=== PATIENT | female | born 1990 | race Caucasian/White ===

== ENCOUNTER 2020-02-06 09:48 | Outpatient (CLI) | payer OTHER, SELFPAY ==
--- NOTE | ~2020-02-06 | XR_ITS ---
LUMBAR SPINE INDICATION: Low back pain TECHNIQUE: 7 views lumbar spine including flexion/extension views COMPARISON: None FINDINGS: No fracture, subluxation or dislocation. No evidence for spondylolysis or spondylolisthesi s. Vertebral bodies and disk spaces are preserved. No significant alteration of alignment with flexi on/extension. There is an IUD in the pelvis. IMPRESSION: 1: No significant abnormality of the lumbar spine identified. Reviewed, dictated and finalized at location B.
--- NOTE | ~2020-02-06 | XR_ITS ---
XR hip BI 2V w AP pelvis 02/06/2020 10:26 INDICATION: Hip pain and low back pain PROCEDURE: AP pelvis and 2 views of each hip COMPARISON: No prior studies for comparison. FINDINGS: Fracture, dislocation or subluxation is not identified. There is an IUD in the pelvis. Sacr al foramen are symmetric. The soft tissues appear within normal limits. No foreign bodies are identi fied. IMPRESSION: 1: NO ACUTE BONE OR JOINT ABNORMALITY IDENTIFIED. Reviewed, dictated and finalized at location B.
== END 2020-02-06 09:49 | disposition home or self-care (01) ==
PROVIDERS: PCP Internal Medicine; Visit Provider Physician Assistant
DX: M25.551 Pain in right hip (principal); M54.5 Low back pain
CPT/HCPCS: 72114; 73521

== ENCOUNTER 2020-05-09 11:11 | Outpatient (CLI) | payer OTHER, SELFPAY ==
--- NOTE | ~2020-05-09 | US_ITS ---
EXAMINATION: US transvaginal EXAM DATE: 05/09/2020 11:31 INDICATION: Right lower quadrant pain. TECHNIQUE: Pelvic transvaginal sonogram was performed. There are multiple grayscale and Doppler imag es available for interpretation. Comparison is made to prior examination from 03/13/2018. FINDINGS: Uterus measures 7.5 x 3.5 x 4.8 cm, with IUD centrally located inside the endometrial cavi ty. Endometrial stripe measures 5 mm, within normal limits. There is no free pelvic fluid. Right adnexa: The ovary measures 2.7 x 2.2 x 1.8 cm and is morphologically normal. Ovarian vascular f low confirmed. Left adnexa: The ovary measures 1.9 x 0.7 x 3.5 cm and is morphologically normal. Ovarian vascular fl ow confirmed. IMPRESSION: 1. Unremarkable pelvic ultrasound exam. Reviewed, dictated and finalized at location A. [employer]
== END 2020-05-09 11:12 ==
PROVIDERS: Visit Provider Obstetrics & Gynecology
DX: R10.31 Right lower quadrant pain (principal)
CPT/HCPCS: 76830

== ENCOUNTER 2023-08-20 10:51 | Emergency (ER) | payer OTHER, SELFPAY ==
--- NOTE | ~2023-08-20 | CT_ITS ---
EXAMINATION: CT abdomen pelvis w con DATE: 08/20/2023 12:39 INDICATION: Mid to upper abdominal pain for one week. Diarrhea. TECHNIQUE: Computed tomography (CT) of the abdomen and pelvis was performed with 100 CC Omnipaque 350 intravenous contrast. Automated exposure control and iterative reconstruction technique were employe d. Exam dose: 856.89 mGy-cm total exam DLP. COMPARISON: None. FINDINGS: Minimal bilateral dependent lower lobe atelectasis. Normal heart size. No pericardial or pleural effusion. Small sliding hiatal hernia. The liver, gallbladder, bile ducts, pancreas and pancreatic duct appear normal. The spleen measures 13.3 cm vertical dimension, within upper limits of normal. Normal morphology of the adrenal glands. Probable very small posterolateral upper pole left renal cyst, too small to definitively characterize . No suspicious renal mass lesion or urinary tract calculus or hydroureteronephrosis. The urinary bladd er is unremarkable. There is an IUD within the uterus. The adnexal areas are unremarkable. Normal caliber of the abdominal aorta. There are some shoddy mesenteric lymph nodes and to a greater extent right lower quadrant lymph nodes including one larger right lower quadrant nodes measuring up to 8.9 x 13.6 mm. There are some fluid levels in the small bowel but no small bowel dilatation. There is some thickening and enhancement of the wall of the terminal ileum. There are some fluid leve ls in the ascending colon. Otherwise no intraperitoneal or retroperitoneal or pelvic mass lesion or adenopathy or ascites. Small fat-containing umbilical hernia. No suspicious osteolytic or osteoblastic lesions. IMPRESSION: Enterocolitis is suggested, nonspecific. This might be infectious or inflammatory. There is likely associated mild right lower quadrant lymphadenopathy Reviewed, dictated and finalized at Location A. Reviewed, dictated and finalized at location A. IMPRESSION: Enterocolitis is suggested, nonspecific. This might be infectious or inflammatory. There is likely associated mild right lower quadrant lymphaden opathy
[2023-08-20 10:56] VITALS: BP 147/88; PULSE 97; RESP 18; TEMP 36.4; O2SAT 100
[2023-08-20 11:37] LABS: Basophils Percent Auto 0.3 % (0.2-1.2); Eosinophils Absolute Auto 0.1 K/mm3 (0-0.3); Eosinophils Percent Auto 0.8 % (0-4.4); Hematocrit 38.7 % (37.0-47.0); Hemoglobin 12.9 g/dL (12.0-15.0); Immature Granulocyte Absolute 0.02 K/mm3 (0.00-0.031); Immature Granulocyte Percent A 0.3 % (0-0.5); Lymphocytes Absolute Auto 1.06 K/mm3 (0.9-3.2); Lymphocytes Percent Auto 17.8 % (18.3-44.2); Mean Corpuscular HGB Conc 33.3 g/dl (32-36); Mean Corpuscular Hemoglobin 27.9 pg (26-34); Mean Corpuscular Volume 83.8 fl (80-100); Mean Platelet Volume 10.5 fl (7.4-10.4); Monocytes Absolute Auto 0.4 K/mm3 (0.1-0.6); Monocytes Percent Auto 6.7 % (2.6-8.5); Neutrophils Absolute Auto 4.4 K/mm3 (1.3-6.7); Neutrophils Percent Auto 74.1 % (45.5-73.1); Platelet Count Result 256 k/mm3 (150-375); Red Blood Count 4.62 M/mm3 (4.2-5.4); Red Cell Distribution Width 12.9 % (11.5-14.5)
[2023-08-20 11:47] LABS: Appearance Urine Clear (Clear); Bilirubin Urine Negative (Negative); Blood Urine Negative (Negative); Color Urine Yellow (Yellow); Glucose Urine UA Negative (Negative); Ketones Urine Negative (Negative); Leukocyte Esterase Ur Negative LEU/UL (Negative); Nitrate Urine Negative (Negative); Protein Urine Negative (Negative); Specific Grav Ur 1.004 (1.001-1.035); Urobilinogen Urine 0.2 mg/dL (<2.0); pH Urine 6.5 (5.0-9.0)
[2023-08-20 11:48] LABS: Add Urine Microscopic? NO
[2023-08-20 11:51] LABS: Alanine Aminotransferase 33 U/L (6-35); Albumin Level 4.6 g/dL (3.5-5.1); Alkaline Phosphatase 87 U/L (38-126); Anion Gap 9 mmol/L (4-12); Aspartate Amino Transferase 28 U/L (14-36); Bilirubin,Total 0.7 mg/dL (0.2-1.3); Blood Urea Nitrogen 12 mg/dL (7-17); Calcium 9.7 mg/dL (8.4-10.2); Carbon Dioxide 24 mmol/L (22-30); Chloride 105 mmol/L (98-107); Estimated CRCL calculation 111 ml/min; Estimated Glomerular Filt Rate > 60; Glucose 102 mg/dL (65-110); Lipase 34 U/L (23-300); Potassium 3.7 mmol/L (3.4-5.0); Sodium 138 mmol/L (137-145)
--- NOTE | 2023-08-20 12:38 | ED.ABDPAIN ---
HPI - Abdominal Pain General Chief Complaint: Abdominal Pain Stated Complaint: abdominal pain Time Seen by Provider: 08/20/23 11:13 Source: patient Mode of arrival: ambulatory Limitations: no limitations History of Present Illness HPI narrative: This is a 32 year old female that presents to the ER for abdominal pain. Ongoing over the last week. Reports diffuse, achy abdominal pain. She was initially evaluated by her PCP. She has been taking laxatives with little relief. Denies fever, vomiting, or dysuria. Related Data Home Medications Medication Instructions Recorded Confirmed levonorgestrel 21 mcg/24 hours (8 1 device intrauterine ONCE 10/08/19 05/04/22 yrs) 52 mg intrauterine device cholecalciferol (vitamin D3) 125 125 mcg PO DAILY 01/07/22 05/04/22 mcg (5,000 unit) capsule Allergies Allergy/AdvReac Type Severity Reaction Status Date / Time No Known Allergies Allergy Verified 08/20/23 10:51 Review of Systems Review of Systems: CONSTITUTIONAL: Denies fever GASTROINTESTINAL: Reports abdominal pain. Denies nausea, vomiting GENITOURINARY: Denies dysuria All systems reviewed & are unremarkable except as noted in HPI and below PMFSH Past Medical History Medical History (Updated 08/20/23 @ 13:10 by Marivel Giron PA-C) Gastro-esophageal reflux disease without esophagitis Family History Family History Mother Patient's mother is in good health Sibling Patient's brother is in good health Social History Social History Smoking status: Never smoker Second hand tobacco smoke exposure: No Alcohol intake: former Substance use: never Lack of Transportation: No Lack of Food: Never True Current Housing: I Have Housing Concerned About Future Housing: No Difficulty Paying Gas/Electric Bills: No Difficulty Paying for Meds: No Currently Unemployed: No Education: Bachelor's Degree Difficulty w/ Childcare or Family Care: No Exam Narrative: GENERAL: Well-appearing, well-nourished, and in no acute distress. HEAD: Normocephalic, atraumatic. EYES: EOMI. CHEST: Clear to auscultation. No respiratory distress. No wheezes rales or rhonchi HEART: Regular rate and rhythm. No murmur heard. Normal peripheral pulses. ABDOMEN: Soft, nondistended, normal active bowel sounds. Mild tenderness to palpation throughout the abdomen, without guarding EXTREMITIES: Normal range of motion. No edema. SKIN: Warm, dry, no rash. NEURO: No focal deficits. Alert and oriented x3. PSYCH: Normal mood and affect Course Course Emergency Course: Patient updated on workup and agrees with plan of care Vital Signs Vital signs: Vital Signs Temperature 97.6 F 08/20/23 10:56 Pulse Rate 97 08/20/23 10:56 Respiratory Rate 18 08/20/23 10:56 Blood Pressure 147/88 H 08/20/23 10:56 Pulse Oximetry 100 08/20/23 10:56 Oxygen Delivery Room Air 08/20/23 10:56 Temperature 97.6 F 08/20/23 10:56 Pulse Rate 92 08/20/23 12:53 Respiratory Rate 20 08/20/23 12:53 Blood Pressure 134/81 08/20/23 12:53 Pulse Oximetry 100 08/20/23 12:53 Oxygen Delivery Room Air 08/20/23 10:56 MDM - Abdominal Pain MDM Narrative Medical decision making narrative: Patient presents to the ER for abdominal pain ongoing over the last week. She is afebrile and nontoxic appearing. Her vitals are stable. CBC without leukocytosis. Metabolic panel without concerning findings. Urine without evidence of infection. CT abdomen/pelvis shows enterocolitis. Patient will be started on oral antibiotics and is to follow up with her PCP. She is in agreement with plan. She was given warnings to return to the ER Differential Diagnosis Differential diagnosis: Likely constipation and diverticulitis Lab Data Attestation: I reviewed the patient's lab results. 08/20/23 11:26 08/20/23 11:26 Lizeth
[2023-08-20 12:53] VITALS: BP 134/81; PULSE 92; RESP 20; O2SAT 100
== END 2023-08-20 13:24 | disposition home or self-care (01) ==
PROVIDERS: Emergency Provider Physician Assistant; PCP Internal Medicine
DX: K52.9 Noninfective gastroenteritis and colitis, unspecified (principal)
CPT/HCPCS: 36415; 74177; 80053; 81003; 81025; 83690; 85025; 99284; Q9967

== ENCOUNTER 2024-03-31 10:24 | Emergency (ER) | payer OTHER, SELFPAY ==
--- NOTE | 2024-03-31 10:26 | ED_ITS ---
HPI - URI/Sore Throat General Chief Complaint: Upper Respiratory Infection Stated Complaint: Sore Throat Time Seen by Provider: 03/31/24 10:25 Source: patient Mode of arrival: ambulatory Limitations: no limitations History of Present Illness HPI Narrative: Patient is a 33-year-old female who presents with sore throat that started 2 days ago. Patient reports multiple episodes of strep throat recently. Patient was diagnosed with strep throat and treated with amoxicillin 01/22, 03/05, 03/17. Denies any fever, chills, nausea, vomiting, diarrhea. Related Data Home Medications Medication Instructions Recorded Confirmed levonorgestrel 21 mcg/24 hr (up to 1 device intrauterine ONCE 10/08/19 03/31/24 8 years) 52 mg intrauterine device cholecalciferol (vitamin D3) 125 125 mcg PO DAILY 01/07/22 03/31/24 mcg (5,000 unit) capsule Allergies Allergy/AdvReac Type Severity Reaction Status Date / Time No Known Allergies Allergy Verified 03/31/24 10:27 Review of Systems Review of Systems: All systems reviewed & are unremarkable except as noted in HPI and below Constitutional: Constitutional: Denies body ache(s), Denies fever(s), Denies headache(s), Denies malaise and Denies weakness Eyes: Eyes: Denies loss of vision ENT: Denies otalgia, Denies headache(s), Reports nasal congestion, Denies sinus pain and Reports sore throat Cardiovascular: Cardiovascular: Denies chest pain, Denies irregular heart rhythm and Denies dyspnea Respiratory: Respiratory: Denies cough and Denies dyspnea Gastrointestinal: Gastrointestinal: Denies abdominal pain, Denies melena, Denies hematochezia, Denies diarrhea, Denies nausea and Denies vomiting Musculoskeletal: Musculoskeletal: Denies back pain, Denies myalgias and Denies arthralgias Integumentary/Breasts: Skin/Breast: Denies pruritus and Denies rash Neurologic: Denies headache(s), Denies loss of vision and Denies weakness Psychiatric: Psychiatric: Reports no additional psychiatric complaints PMFSH Past Medical History Medical History Gastro-esophageal reflux disease without esophagitis Family History Family History Mother Patient's mother is in good health Sibling Patient's brother is in good health Social History Social History Smoking status: Never smoker Second hand tobacco smoke exposure: No Alcohol intake: former Substance use: never Lack of Transportation: No Lack of Food: Never True Current Housing: I Have Housing Concerned About Future Housing: No Difficulty Paying Gas/Electric Bills: No Difficulty Paying for Meds: No Currently Unemployed: No Education: Bachelor's Degree Difficulty w/ Childcare or Family Care: No Comments At time of signature, agree with nursing past medical, surgical, social and family history. There is no relevant family history pertinent to the presenting complaint. Exam Const: General: cooperative, healthy appearing, comfortable, no acute distress and well nourished Nutritional Appearance: well nourished Orientation/consciousness: patient oriented x3 Limitations: no limitations HENMT: Head: normal to inspection, normocephalic and atraumatic Ears: hearing grossly normal bilaterally, external ears normal, TM's normal bilaterally and EAC's normal Face/Nose/Sinus: Normal external nose present, Normal nares present, Normal nasal mucous membranes and turbinates present, Normal septum present, normal facial exam, sinuses nontender and face symmetric Face and sinus: normal facial exam, sinuses nontender and face symmetric Mouth: Yes Normal oral and palatal mucosa present, Yes lip normal and Yes moist mucous membranes Teeth and gingiva: dentition normal Throat: uvula midline, posterior oropharynx abnormal edema and erythema, postnasal drainage and tonsils absent Eyes: General: appearance normal, both eyes and all related structures Alignment and Position: alignment normal and position normal Periorbital: periorbital findings normal Eyelids: eyelids normal Pupils: Equal, round and reactive pupils present Neck: Neck: normal visual inspection, full ROM, no lymphadenopathy and supple Chest: Chest palpation & inspection: normal inspection of the chest and normal palpation of entire chest wall Resp: Effort & Inspection: normal respiratory effort and able to speak in complete sentences Auscultation: clear to auscultation bilaterally, no crackles, no rales, no rhonchi and no wheezes Cardio: Rate: regular rate Rhythm: regular rhythm Heart sounds: S1 normal heart sound present and S2 normal heart sound present GI: Inspection: normal to inspection Skin: General skin exam: normal color and no rashes or lesions noted Neuro: General: patient oriented x3 and moves all extremities Cranial nerves: Yes Equal, round and reactive pupils present Speech: normal speech Gait exam (Neuro): Normal gait present Extrem: General: normal to inspection, full ROM and no edema Psych: Appearance: grossly normal and well kempt Mental Status: mental status grossly normal Speech and movement: Normal speech and movement present Affect: normal affect Attitude: cooperative Thought process: Normal thought process present Course Course Emergency Course: Patient is aware of diagnosis, understands and agrees to treatment plan. Anticipatory guidance given. Patient agrees to follow-up as directed and is aware of reasons to seek care at the emergency department. Portions of this record may have been created with voice recognition software Level of Care: Express Care Visit Vital Signs Vital signs: Vital Signs Temperature 36.7 C 03/31/24 10:33 Pulse Rate 102 H 03/31/24 10:33 Respiratory Rate 20 03/31/24 10:33 Blood Pressure 137/90 03/31/24 10:33 Pulse Oximetry 98 03/31/24 10:33 Oxygen Delivery Room Air 03/31/24 10:33 Temperature 36.7 C 03/31/24 10:35 Pulse Rate 102 H 03/31/24 10:35 Respiratory Rate 20 03/31/24 10:35 Blood Pressure 137/90 03/31/24 10:35 Pulse Oximetry 98 03/31/24 10:35 Oxygen Delivery Room Air 03/31/24 10:35 Reviewed MDM - URI/Sore Throat MDM Narrative Medical decision making narrative: Patient positive for strep, will treat with antibiotics. Differential diagnosis considered: Almanza virus, strep pharyngitis, allergic rhinitis, upper respiratory tract infection, sinusitis, rhinosinusitis, nasopharyngitis. viral pharyngitis, otitis media, otitis externa, pneumonia, bronchitis, viral cough syndrome, viral syndrome, and influenza. Exam findings show no acute concerns or changes; patient is non-toxic appearing and is in no distress. Patient is appropriate for outpatient treatment and follow-up Medical Records Attestation: I reviewed the patient's medical records. Lab Data Attestation: I reviewed the patient's lab results. Labs: Lab Results 03/31/24 Range/Units 10:43 POC Grp A Strep Screen Positive (Negative) Discharge Plan Discharge Clinical Impression: Strep throat Patient Disposition: Home, Self-Care Condition: Stable Instructions: Strep Throat (ED) Additional Instructions: Your rapid strep swab was positive today at [facility]. After 24 hours on antibiotics throw tooth brush away and start using a new one. Wash your sheets and cup/water bottle that is used daily. Do not share drinks. Take Motrin alternating with Tylenol for pain and fever alternating every 4 hours. Increase fluids, avoid caffeine. Other symptomatic treatments include: -Antihistamine medication such as Benadryl at night and Zyrtec/Claritin/Eliza during the day can help improve symptoms. -Use Flonase twice a day for 5 days then daily to help reduce the inflammation and dry up your sinuses. -You can also use Sudafed or Mucinex. Be sure to drink plenty of water with these medications at least 8 ounces with every dose and it is important to drink 8 to 10 glasses of water per day. Water is a natural decongestant -Eat and drink things that are easy to swallow, like tea or soup, or popsicles. -Oral rinses such as: Salt water gargles and/or may use topical anesthetic (eg. Chloraseptic spray) or lozenges to relieve dryness or throat pain). -Frequent hand washing or hand behavioral health technician is one of the best ways to prevent spread of infection. -Using a vaporizer or humidifier at night will also help thin secretions and help with coughing up phlegm. -Follow up with primary care provider in 3-5 days if condition is not improving - For new or worsening symptoms go directly to the nearest ER Prescriptions: New cefdinir 300 mg capsule 300 mg PO Q12H 10 Days Qty: 20 0RF No Action levonorgestrel 20 mcg/24 hours (5 yrs) 52 mg intrauterine device 1 device I-UTERINE ONCE Rx Instructions: as a single dose pantoprazole [Protonix] 40 mg tablet,delayed release (DR/EC) 40 mg PO QAM Qty: 90 1RF cholecalciferol (vitamin D3) 125 mcg (5,000 unit) capsule 125 mcg PO DAILY fluticasone propionate 50 mcg/actuation spray,suspension 2 spray intranasal DAILY PRN (Reason: allergy symptoms) Qty: 15.8 3RF Rx Instructions: administer into each nostril alprazolam 0.5 mg tablet 0.5 mg PO .COMPLEX PRN (Reason: MRI) Qty: 2 0RF Rx Instructions: one tablet 30 minutes before MRI, may repeat X 1 time if needed tramadol 50 mg tablet 50 mg PO BID PRN (Reason: pain) Qty: 30 0RF Rx Instructions: Not eligible for refill cyclobenzaprine 10 mg tablet 10 mg PO .QHS PRN (Reason: muscle spasm) Qty: 30 0RF buspirone 7.5 mg tablet 7.5 mg PO BID Qty: 60 2RF Follow-up/Referrals: Geeta,Jeffery Meredith, [Primary Care Provider] - 3 Days Stand Alone Forms: Work/School Release IP Time of Disposition: 10:55
[2024-03-31 10:33] VITALS: BP 137/90; PULSE 102; RESP 20; TEMP 36.7; O2SAT 98
[2024-03-31 10:35] VITALS: BP 137/90; PULSE 102; RESP 20; TEMP 36.7; O2SAT 98
[2024-03-31 10:58] LABS: EDSTREPNEGPOS1 Positive (Negative)
== END 2024-03-31 11:00 | disposition home or self-care (01) ==
PROVIDERS: Emergency Provider Nurse Practitioner Family; PCP Internal Medicine
DX: J02.0 Streptococcal pharyngitis (principal); K21.9 Gastro-esophageal reflux disease without esophagitis
CPT/HCPCS: 87880; 99213; G0463

== ENCOUNTER 2024-04-27 11:50 | Emergency (ER) | payer OTHER, SELFPAY ==
[2024-04-27 12:00] VITALS: BP 139/97; PULSE 100; RESP 18; TEMP 36.9; O2SAT 100
[2024-04-27 12:32] LABS: EDSTREPNEGPOS1 Negative (Negative)
--- NOTE | 2024-04-27 12:35 | ED.URI ---
HPI - URI/Sore Throat General Chief Complaint: Upper Respiratory Infection Stated Complaint: Throat/Cough Irritation Time Seen by Provider: 04/27/24 12:37 History of Present Illness HPI Narrative: Patient presents with 2 week history of postnasal drainage, sinus congestion, sore throat, cough. She reports that she believes cough is due to the postnasal drainage. She has been taking [id number] medications with minimal relief. She says over the past several days her throat has begun to hurt much worse. She denies any fever, but does report she is more tired than normal. She voices no other concerns or complaints at this time Related Data Home Medications Medication Instructions Recorded Confirmed cholecalciferol (vitamin D3) 125 125 mcg PO DAILY 01/07/22 04/27/24 mcg (5,000 unit) capsule amitriptyline 10 mg tablet 10 mg PO DAILY 04/27/24 04/27/24 omeprazole 40 mg capsule,delayed 40 mg PO DAILY 04/27/24 04/27/24 release Allergies Allergy/AdvReac Type Severity Reaction Status Date / Time No Known Allergies Allergy Verified 04/27/24 12:02 Review of Systems Review of Systems: All systems reviewed & are unremarkable except as noted in HPI and below Constitutional: Constitutional: Reports no additional constitutional complaints ENT: Reports system reviewed and no additional complaints, except as documented, Reports as per HPI, Reports nasal congestion, Reports sinus pain, Reports sinus pressure and Reports sore throat Cardiovascular: Cardiovascular: Reports no additional cardiovascular complaints Respiratory: Respiratory: Reports no additional respiratory complaints, Reports chest congestion and Reports cough Gastrointestinal: Gastrointestinal: Reports no additional gastrointestinal complaints [facility] Past Medical History Medical History Gastro-esophageal reflux disease without esophagitis Family History Family History Mother Patient's mother is in good health Sibling Patient's brother is in good health Social History Social History Smoking status: Never smoker Second hand tobacco smoke exposure: No Alcohol intake: former Substance use: never Lack of Transportation: No Lack of Food: Never True Current Housing: I Have Housing Concerned About Future Housing: No Difficulty Paying Gas/Electric Bills: No Difficulty Paying for Meds: No Currently Unemployed: No Education: Bachelor's Degree Difficulty w/ Childcare or Family Care: No Exam Const: General: cooperative, no acute distress, alert and awake Orientation/consciousness: oriented to person, oriented to place and oriented to time HENMT: Head: normal to inspection Ears: TM abnormal dull bilateral Mouth: Yes moist mucous membranes Throat: posterior oropharynx abnormal erythema and postnasal drainage Resp: Effort & Inspection: normal respiratory effort and able to speak in complete sentences Auscultation: clear to auscultation bilaterally, no crackles, no rales, no rhonchi and no wheezes Cardio: Palpation: normal PMI Rate: regular rate Rhythm: regular rhythm Heart sounds: S1 normal heart sound present and S2 normal heart sound present Neuro: General: oriented to person, oriented to place and oriented to time Cranial nerves: Yes CN's II-XII intact bilaterally Psych: Appearance: grossly normal Thought process: Normal thought process present Insight: Good insight present (Psych) Judgement: Good judgement present (Psych) Course Course Level of Care: Express Care Visit Vital Signs Vital signs: Vital Signs Temperature 98.4 F 04/27/24 12:00 Pulse Rate 100 04/27/24 12:00 Respiratory Rate 18 04/27/24 12:00 Blood Pressure 139/97 H 04/27/24 12:00 Pulse Oximetry 100 04/27/24 12:00 Oxygen Delivery Room Air 04/27/24 12:00 Temperature 98.4 F 04/27/24 12:00 Pulse Rate 100 04/27/24 12:00 Respiratory Rate 18 04/27/24 12:00 Blood Pressure 139/97 H 04/27/24 12:00 Pulse Oximetry 100 04/27/24 12:00 Oxygen Delivery Room Air 04/27/24 12:00 MDM - URI/Sore Throat MDM Narrative Medical decision making narrative: Negative strep, culture pending. Two weeks of symptoms, consistent with sinusitis. Treat is same. Patient is nontoxic appearing, stable for discharge home on p.o. antibiotic therapy. Discharge instructions reviewed with patient, as well as provided in writing per nursing staff. The instructions also include specific and strict return/GO TO THE ER as well as f/u information. All questions have been answered, and the patient deny any further questions with discharge and discharge plan. Some parts of this dictation were generated by voice recognition software and may contain typographical and/or grammatical inaccuracies. Differential Diagnosis Differential diagnosis: Likely upper respiratory infection, bronchitis and pharyngitis Medical Records Attestation: I reviewed the patient's medical records. Lab Data Attestation: I reviewed the patient's lab results. Labs: Lab Results 04/27/24 Range/Units 12:10 POC Grp A Strep Screen Negative (Negative) Discharge Plan Discharge Clinical Impression: Sinusitis Qualifiers: Sinusitis location: maxillary Chronicity: acute Recurrence: not specified as recurrent Qualified Code(s): J01.00 - Acute maxillary sinusitis, unspecified Patient Disposition: Home, Self-Care Condition: Stable Instructions: Antibiotic Form, Sinusitis (ED) Additional Instructions: Take medications as prescribed. Follow with primary care provider. Emergency department for any new or worsening symptoms Patient Language: Guatemalan Prescriptions: New amoxicillin-pot clavulanate 875-125 mg tablet 1 tablet PO Q12H Qty: 20 0RF No Action omeprazole 40 mg capsule,delayed release(DR/EC) 40 mg PO DAILY amitriptyline 10 mg tablet 10 mg PO DAILY cholecalciferol (vitamin D3) 125 mcg (5,000 unit) capsule 125 mcg PO DAILY fluticasone propionate 50 mcg/actuation spray,suspension 2 spray intranasal DAILY PRN (Reason: allergy symptoms) Qty: 15.8 3RF Rx Instructions: administer into each nostril cyclobenzaprine 10 mg tablet 10 mg PO .QHS PRN (Reason: muscle spasm) Qty: 30 0RF Follow-up/Referrals: Juan F Lee DO [Primary Care Provider] - 1 Week Time of Disposition: 12:44
== END 2024-04-27 12:50 | disposition home or self-care (01) ==
PROVIDERS: Emergency Provider Nurse Practitioner Family; PCP Internal Medicine
DX: J01.00 Acute maxillary sinusitis, unspecified (principal); K21.9 Gastro-esophageal reflux disease without esophagitis
CPT/HCPCS: 87081; 87880; 99213; G0463

== ENCOUNTER 2024-05-02 12:16 | Emergency (ER) | payer OTHER, SELFPAY ==
--- NOTE | ~2024-05-02 | XR_ITS ---
XR chest 2V 05/02/2024 12:53 Indication: Productive cough Procedure: 2 view chest Comparison: No prior studies for comparison. Findings: There is left lower lobe pneumonia. No pleural effusion. Heart size normal. No edema or pne umothorax. Impression: 1: Left lower lobe pneumonia. Reviewed, dictated and finalized at location B. [employer] Impression: 1: Left lower lobe pneumonia.
[2024-05-02 12:21] VITALS: BP 127/81; PULSE 105; RESP 18; TEMP 37.4; O2SAT 99
--- NOTE | 2024-05-02 12:40 | ED_ITS ---
HPI - URI/Sore Throat General Chief Complaint: Upper Respiratory Infection Stated Complaint: Cough Time Seen by Provider: 05/02/24 12:40 Source: patient, RN notes reviewed and old records reviewed Mode of arrival: ambulatory Limitations: no limitations History of Present Illness HPI Narrative: Patient recently treated for sinusitis, still taking Augmentin, presents today with complaints of chest congestion. She reports that symptoms began 3 or 4 days ago. She reports that cough is congested and productive. She denies any fever. She does report that sinusitis symptoms have begun to subside. She does not feel the 2 are related. She denies any injury or trauma. She does reports some wheezing at night. She denies any shortness of breath. She voices no other concerns or complaints at this time. Related Data Home Medications ?Medication ?Instructions ?Recorded ?Confirmed ?Last Taken ?Type cholecalciferol (vitamin D3) 125 125 mcg PO DAILY 01/07/22 04/27/24 Unknown History mcg (5,000 unit) capsule amitriptyline 10 mg tablet 10 mg PO DAILY 04/27/24 04/27/24 Unknown History omeprazole 40 mg capsule,delayed 40 mg PO DAILY 04/27/24 04/27/24 Unknown History release Allergies Allergy/AdvReac Type Severity Reaction Status Date / Time No Known Allergies Allergy Verified 04/27/24 12:02 Review of Systems Review of Systems: All systems reviewed & are unremarkable except as noted in HPI and below Constitutional: Constitutional: Reports as per HPI and Reports no additional constitutional complaints ENT: Reports system reviewed and no additional complaints, except as documented and Reports as per HPI Cardiovascular: Cardiovascular: Reports as per HPI and Reports no additional cardiovascular complaints Respiratory: Respiratory: Reports as per HPI, Reports no additional respiratory complaints, Reports chest congestion and Reports cough Gastrointestinal: Gastrointestinal: Reports no additional gastrointestinal complaints [facility] Past Medical History Medical History Gastro-esophageal reflux disease without esophagitis Family History Family History Mother Patient's mother is in good health Sibling Patient's brother is in good health Social History Social History Smoking status: Never smoker Second hand tobacco smoke exposure: No Alcohol intake: former Substance use: never Lack of Transportation: No Lack of Food: Never True Current Housing: I Have Housing Concerned About Future Housing: No Difficulty Paying Gas/Electric Bills: No Difficulty Paying for Meds: No Currently Unemployed: No Education: Bachelor's Degree Difficulty w/ Childcare or Family Care: No Comments At the time of my signature, I reviewed and agree with the nursing past medical, surgical, social, and family history. There is no relevant family history pertinent to the patient complaint. Exam Const: General: cooperative, no acute distress, alert and awake Orientation/consciousness: oriented to person, oriented to place and oriented to time HENMT: Head: normal to inspection Resp: Effort & Inspection: normal respiratory effort and able to speak in complete sentences Auscultation: clear to auscultation bilaterally, crackles on the left in the lower lung jones, no rales, no rhonchi and no wheezes Cardio: Palpation: normal PMI Rate: regular rate Rhythm: regular rhythm Heart sounds: S1 normal heart sound present and S2 normal heart sound present Neuro: General: oriented to person, oriented to place and oriented to time Cranial nerves: Yes CN's II-XII intact bilaterally Psych: Appearance: grossly normal Thought process: Normal thought process present Insight: Good insight present (Psych) Judgement: Good judgement present (Psych) Course Course Level of Care: Express Care Visit Vital Signs Vital signs: Vital Signs Temperature 99.3 F 05/02/24 12:21 Pulse Rate 105 H 05/02/24 12:21 Respiratory Rate 18 05/02/24 12:21 Blood Pressure 127/81 05/02/24 12:21 Pulse Oximetry 99 05/02/24 12:21 Oxygen Delivery Room Air 05/02/24 12:21 Temperature 99.3 F 05/02/24 12:21 Pulse Rate 105 H 05/02/24 12:21 Respiratory Rate 18 05/02/24 12:21 Blood Pressure 127/81 05/02/24 12:21 Pulse Oximetry 99 05/02/24 12:21 Oxygen Delivery Room Air 05/02/24 12:21 Reviewed MDM - URI/Sore Throat MDM Narrative Medical decision making narrative: Patient being treated for sinusitis with Augmentin now has chest x-ray showing left lower lobe pneumonia, which is consistent with her physical exam. Start azithromycin. Bronchodilator. Follow with primary care provider. She is nontoxic appearing, stable for discharge home. Emergency department precautions discussed. Discharge instructions reviewed with patient, as well as provided in writing per nursing staff. The instructions also include specific and strict return/GO TO THE ER as well as f/u information. All questions have been answered, and the patient deny any further questions with discharge and discharge plan. Some parts of this dictation were generated by voice recognition software and may contain typographical and/or grammatical inaccuracies. Differential Diagnosis Differential diagnosis: Likely upper respiratory infection, sinusitis, viral infection and bronchitis Medical Records Attestation: I reviewed the patient's medical records. Imaging Data Attestation: I personally reviewed and interpreted this imaging study as follows: My impression: LLL ruby Radiologist's impression: [facility] [address] [place] [address] XRay Report Signed Patient: Roxie López : 1990 MR#: [id number] Age: 33 Acct:[id number] Loc: [facility] ADM Date: 05/02/24Attending Dr: Ordering Physician: Radha Romeo FNP Date of Service: 05/02/24 Procedure(s): XR chest 2V Accession Number(s): [id number] cc: Radha Romeo FNP; Juan F Lee DO~ XR chest 2V 05/02/2024 12:53 Indication: Productive cough Procedure: 2 view chest Comparison: No prior studies for comparison. Findings: There is left lower lobe pneumonia. No pleural effusion. Heart size normal. No edema or pneumothorax. Impression: 1: Left lower lobe pneumonia. Reviewed, dictated and finalized at location B. [facility] [employer] Dictated By: Carlos De La Paz MD 05/02/24 1255 Signed By: <Electronically signed by Carlos De La Paz MD in OV> 05/02/24 1301 Discharge Plan Discharge Clinical Impression: Pneumonia Qualifiers: Pneumonia type: due to unspecified organism Laterality: left Lung location: lower lobe of lung Qualified Code(s): J18.9 - Pneumonia, unspecified organism Patient Disposition: Home, Self-Care Condition: Stable Instructions: Antibiotic Form, Pneumonia (ED) Additional Instructions: Take medications as prescribed. Follow with primary care provider. Emergency department for new or worse symptoms Patient Language: Maltese Prescriptions: New azithromycin 250 mg tablet See Rx Instructions .ROUTE .COMPLEX Qty: 6 0RF Rx Instructions: For 250 mg dose pack: take 500 mg today (day 1), then 250 mg for 4 days (days 2-5) prednisone 50 mg tablet 50 mg PO DAILY Qty: 5 0RF albuterol sulfate [Ventolin HFA] 90 mcg/actuation HFA aerosol inhaler 2 puff inhalation QID PRN (Reason: shortness of breath or wheezing) Qty: 8.5 0RF No Action omeprazole 40 mg capsule,delayed release(DR/EC) 40 mg PO DAILY amitriptyline 10 mg tablet 10 mg PO DAILY amoxicillin-pot clavulanate 875-125 mg tablet 1 tablet PO Q12H Qty: 20 0RF cholecalciferol (vitamin D3) 125 mcg (5,000 unit) capsule 125 mcg PO DAILY fluticasone propionate 50 mcg/actuation spray,suspension 2 spray intranasal DAILY PRN (Reason: allergy symptoms) Qty: 15.8 3RF Rx Instructions: administer into each nostril cyclobenzaprine 10 mg tablet 10 mg PO .QHS PRN (Reason: muscle spasm) Qty: 30 0RF benzonatate 200 mg capsule 200 mg PO TID PRN (Reason: cough) Qty: 30 0RF Follow-up/Referrals: Juan F Lee DO [Primary Care Provider] - 2 Weeks Stand Alone Forms: Work/School Release IP Time of Disposition: 13:22
== END 2024-05-02 13:25 | disposition home or self-care (01) ==
PROVIDERS: Emergency Provider Nurse Practitioner Family; PCP Internal Medicine
DX: J18.1 Lobar pneumonia, unspecified organism (principal); K21.9 Gastro-esophageal reflux disease without esophagitis
CPT/HCPCS: 71046; 99213; G0463

== ENCOUNTER 2024-05-24 14:54 | Outpatient (CLI) | payer OTHER, SELFPAY ==
--- NOTE | 2024-05-24 14:59 | ECG_ITS ---
Test Date: 2024-05-24 15:05:17 Measurements Intervals [place] Rate: 97 P: 46 [place]: 173 QRS: 7 QRSD: 106 T: 24 QT: 349 QTc: 444 Interpretive Statements SINUS RHYTHM No previous ECG available for comparison Electronically Signed On 05-27-2024 15:07:17 DIRECTOR OF STRATEGY [employer] MOBILE by Simeon Schofield M.D.
== END 2024-05-24 14:55 | disposition home or self-care (01) ==
LOC: ANHLAB 14:55 → ANHCARD 14:56
PROVIDERS: PCP Internal Medicine; Visit Provider Internal Medicine
DX: R07.89 Other chest pain (principal)
CPT/HCPCS: 93005

== ENCOUNTER 2024-05-29 16:24 | Outpatient (CLI) | payer OTHER, SELFPAY ==
--- NOTE | ~2024-05-29 | CT_ITS ---
EXAMINATION:CT diagnostic chest wo con DATE: 05/29/2024 17:01 INDICATION: Other nonspecific abnormal finding of lung field. TECHNIQUE: Computed tomography (CT) of the chest was performed without intravenous contrast. Automate d exposure control and iterative reconstruction technique were employed. The dose-length product (DLP ) was 110.63 mGy-cm. COMPARISON: CT abdomen and pelvis 08/20/2023, chest 2 views 05/02/2024 FINDINGS: There is mild dependent atelectasis bilaterally. No pleural effusion. The heart size is nor mal. No pericardial effusion. There is mild splenomegaly, likely secondary to obesity. The bones are unremarkable. IMPRESSION: 1. Normal lungs. Reviewed, dictated and finalized at location A. [employer] IMPRESSION: 1. Normal lungs.
== END 2024-05-29 16:25 | disposition home or self-care (01) ==
LOC: ANHIMG 16:28
PROVIDERS: PCP Internal Medicine; Visit Provider Internal Medicine
DX: R91.8 Other nonspecific abnormal finding of lung field (principal)
CPT/HCPCS: 71250

== ENCOUNTER 2024-08-08 15:42 | Outpatient (CLI) | payer OTHER, SELFPAY ==
--- NOTE | ~2024-08-08 | US_ITS ---
EXAM: RENAL ULTRASOUND HISTORY: Unspecified abdominal pain . Right flank pain as described by patient COMPARISON: None. Reference is made with a CT examination of the abdomen and pelvis dated 08/20/2023 FINDINGS: RIGHT KIDNEY: 10 x 4.1 x 5.7 cm. The parenchyma of the right kidney is unremarkable in echogenicity. No hydronephrosis or bulky renal calculi. LEFT KIDNEY: 11.9 x 5.2 x 4.4 cm No hydronephrosis or renal calculi. The parenchyma of the left kidney is unremarkable in echogenicity. BLADDER: Minimally distended, and otherwise unremarkable. IMPRESSION: No hydronephrosis or renal calculi. Reviewed, dictated and finalized at location A.
== END 2024-08-08 15:43 | disposition home or self-care (01) ==
LOC: MICIMG 15:42
PROVIDERS: PCP Internal Medicine; Visit Provider Internal Medicine
DX: R10.9 Unspecified abdominal pain (principal)
CPT/HCPCS: 76775